=== PATIENT | male | born 1940 | race Caucasian/White ===

== ENCOUNTER → 2020-01-20 | Outpatient (CLI) | payer MEDICARE, BC | LOC: COL.RAD 12:55 | DX: I77.810 Thoracic aortic ectasia (principal); I51.7 Cardiomegaly; I25.10 Atherosclerotic heart disease of native coronary artery without angina pectoris; N20.0 Calculus of kidney; K80.20 Calculus of gallbladder without cholecystitis without obstruction | CPT/HCPCS: Q9967 ==

== ENCOUNTER 2020-02-25 07:59 | Outpatient (CLI) | payer MEDICARE, BC ==
[~2020-02-25] VITALS: Ht 193 cm; Wt 119.1 kg
[2020-02-25] MEDS ORDERED: BIOTIN10000 MC1 PO (09:21)
[2020-02-25] MEDS ORDERED: HYGROTON 2525 MG/TAB PO (09:22)
[2020-02-25] MEDS ORDERED: FIBER0.52 GM PO (09:23)
[2020-02-25] MEDS ORDERED: ELIQUIS 5MG PO (09:23)
[2020-02-25] MEDS ORDERED: DUO-KAPS1 CAP PO (09:24)
[2020-02-25] MEDS ORDERED: COZAAR100 MG PO (09:24)
[2020-02-25] MEDS ORDERED: MELATIN 3 MG-11 TAB PO (09:24)
[2020-02-25] MEDS ORDERED: FLOMAX 0.40.4 MG/CAP PO (09:25)
[2020-02-25] MEDS ORDERED: PAXIL 20MG20 MG PO (09:25)
[2020-02-25 09:32] VITALS: BP 156/108; PULSE 68; TEMP 98.2
[2020-02-25] MEDS ORDERED: CEPHALEXIN500 M1 PO (09:49)
[2020-02-25 10:00] VITALS: BP 134/84; PULSE 101
--- NOTE | 2020-02-25 10:30 | NUR ---
Discharge instructions given to pt.Pt verbalizes understanding.INT removed,catheter tip intact.Pt escorted out by this nurse.
== END 2020-02-25 12:15 | disposition home or self-care (01) ==
LOC: COL.CAR
DX: I48.19 Other persistent atrial fibrillation (principal); I25.10 Atherosclerotic heart disease of native coronary artery without angina pectoris; I10 Essential (primary) hypertension; F41.9 Anxiety disorder, unspecified; Z79.01 Long term (current) use of anticoagulants; I73.9 Peripheral vascular disease, unspecified; I77.819 Aortic ectasia, unspecified site